=== PATIENT | female | born 1970 | race Two or more races ===

== ENCOUNTER → 2019-02-24 | Outpatient (CLI) | payer OTHER | END | disposition home or self-care (01) | LOC: NUCLEAR 14:00 | DX: M85.88 Other specified disorders of bone density and structure, other site (principal) ==

== ENCOUNTER 2023-12-20 04:08 | Emergency (ER) | payer OTHER ==
[~2023-12-20] VITALS: Ht 167.6 cm; Wt 122.5 kg
[2023-12-20] MEDS ORDERED: SYNTHROID50 MCG (04:20)
[2023-12-20] MEDS ORDERED: PROMETHAZINE HCL 50 MG/ML AMPUL IM STA (04:35)
[2023-12-20] MEDS ORDERED: HYOSCYAMINE SULFATE 0.125 MG TAB.SUBL SL STA (04:35)
[2023-12-20] MEDS ORDERED: LACTOBACILLUS ACIDOPHILUS 1 CAP CAP PO STA (04:36)
[2023-12-20] MEDS ORDERED: FAMOTIDINE/PF 20 MG/2 ML VIAL IV PUSH STA (04:36)
[2023-12-20] MEDS ORDERED: 0.9 % SODIUM CHLORIDE 1,000 ML IV ONE (04:45)
[2023-12-20 05:08] LABS: HEMATOCRIT 41.8 % (36.0-45.00); MEAN CELL VOLUME 77.2 fL (80.00-100.00); MEAN CORPUSCULAR HEMOGLOBIN 25.9 pg (27.00-32.0); MEAN CORPUSCULAR HGB CONC 33.5 g/dl (32.0-36.0); PLATELET COUNT 352 K/uL (150-450); RED BLOOD COUNT 5.41 M/uL (4.00-6.00)
[2023-12-20 05:21] LABS: RED CELL DISTRIBUTION WIDTH 17.9 % (11.5-14.5)
[2023-12-20 05:26] LABS: CALCIUM 8.2 mg/dL (8.5-10.1); CREATININE SERUM 0.92 mg/dL (0.55-1.02); POTASSIUM 4.1 mEq/L (3.5-5.1)
[2023-12-20 05:49] LABS: GFR 63.86
[2023-12-20 08:42] LABS: PH,URINE 6.5 (5.0-8.0); URINE APPEARANCE Clear; URINE BILIRRUBIN Negative (NEGATIVE); URINE BLOOD Large; URINE COLOR Yellow; URINE GLUCOSE Negative (NEGATIVE); URINE LEUKOCYTE Negative; URINE NITRATE Negative; URINE PROTEIN Negative (NEGATIVE); URINE UROBILINOGEN 0.2 E.U./dl
[2023-12-20 08:45] LABS: URINE BACTERIA 108.3 uL (0.0-1933); URINE RBC 1041.3 uL (0.0-20.8); URINE WBC 15.3 uL (0.0-23.2)
[2023-12-20] MEDS ORDERED: ZOFRAN8 MG PO (09:09)
[2023-12-20] MEDS ORDERED: PEPCID AC20 MG PO (09:09)
== END 2023-12-20 09:17 | disposition home or self-care (01) ==
LOC: ER 04:09
PROVIDERS: General Practice
DX: K52.89 Other specified noninfective gastroenteritis and colitis (principal)

== ENCOUNTER 2024-03-21 11:27 | Emergency (ER) | payer OTHER ==
[~2024-03-21] VITALS: Ht 154.9 cm; Wt 90.7 kg
[~2024-03-21 11:27] MED LIST: PEPCID AC20 MG PO; SYNTHROID50 MCG; ZOFRAN8 MG PO
[2024-03-21 12:53] LABS: HEMOGLOBIN 14.2 g/dL (12.0-15.00); MEAN CELL VOLUME 79.8 fL (80.00-100.00); MEAN CORPUSCULAR HEMOGLOBIN 26.9 pg (27.00-32.0); MEAN CORPUSCULAR HGB CONC 33.8 g/dl (32.0-36.0); PLATELET COUNT 325 K/uL (150-450); RED BLOOD COUNT 5.27 M/uL (4.00-6.00); RED CELL DISTRIBUTION WIDTH 14.1 % (11.5-14.5)
== END 2024-03-21 13:53 | disposition home or self-care (01) ==
LOC: ER 11:28
PROVIDERS: Emergency Medicine
DX: U07.1 COVID-19 (principal)